=== PATIENT | male | born 1955 | race Caucasian/White ===

== ENCOUNTER → 2019-03-17 | Day surgery (SDC) | payer BC ==
[~2019-03-17] MED LIST: Bupivacaine 0.5% 50 ML MDV ONE; Dexamethasone 4 MG/ML SDV ONE; Glycopyrrolate 0.2 MG/ML 5 ML MDV ONE; LORazepam 2 MG/ML SDV IVPUSH ONE; Lactated Ringers 1,000 ML ONE; Morphine 4 MG/ML Syringe IVPUSH ONE; Neostigmine Methylsulfate 1 MG/ML 5 ML Syringe ONE; Ondansetron 4 MG/2 ML SDV ONE; Propofol 200 MG/20 ML SDV ONE; Rocuronium 50 MG/5 ML Vial ONE; Sodium Chloride 0.9% 10 ML Syringe FLUSH PRN; Succinylcholine 200 MG/10 ML MDV ONE; ceFAZolin 2 GM in Premix Bag 1 BAG IV ONE; fentaNYL 250 MCG/5 ML SDV ONE
--- NOTE | 2019-03-17 20:30 | EDM.PDOC ---
ED HPI GENERAL MEDICAL PROBLEM - General Chief Complaint: Laceration Stated Complaint: CUT ARM Time Seen by Provider: 03/17/19 20:00 Source of Information: Reports: Patient, Family History Limitations: Reports: No Limitations - History of Present Illness INITIAL COMMENTS - FREE TEXT/NARRATIVE: Alert pleasant 63-year-old gentleman presents with an acute right wrist/forearm injury. He is right-handed. Patient stated approximately an hour ago he slipped carrying a heavy object slipped/tripped landed on the bumper of the vehicle using his right wrist/forearm resulting in a laceration of the wrist ulnar flexor whcih wraps around to the extensor surface. Patient states he is able to move all his fingers. Patient denies any other injuries his or concerns. Patient's last meal was approximately 2 hours ago at 6:30 PM. Patient presents with his was at bedside and supportive. - Related Data Allergies Allergy/AdvReac Type Severity Reaction Status Date / Time No Known Allergies Allergy Verified 03/17/19 20:42 Home Meds: Home Meds NK [No Known Home Meds] 03/17/19 [History] ED ROS GENERAL - Review of Systems Review Of Systems: ROS reveals no pertinent complaints other than HPI. ED EXAM, SKIN/RASH Exam: See Below Exam Limited By: No Limitations (Acute stress response noted) General Appearance: Alert, WD/WN, Anxious, Moderate Distress Eye Exam: Bilateral Eye: EOMI, PERRL Ears: Normal External Exam, Normal Canal, Hearing Grossly Normal Nose: Normal Inspection, Normal Mucosa, No Blood Throat/Mouth: Normal Inspection, Normal Lips, Normal Teeth, Normal Gums, Normal Oropharynx, Normal Voice, No Airway Compromise Head: Atraumatic, Normocephalic Neck: Normal Inspection, Supple, Non-Tender, Full Range of Motion Respiratory/Chest: No Respiratory Distress, Lungs Clear, Normal Breath Sounds, No Accessory Muscle Use, Chest Non-Tender Cardiovascular: Normal Peripheral Pulses, Regular Rate, Rhythm GI/Abdominal: Normal Bowel Sounds, Soft Extremities: Normal Range of Motion, No Pedal Edema, Normal Capillary Refill, Arm Pain (extensive right wrist laceration deepest point at ulnar/flexor surface with exposure and less than 50% involvement of flexor carpi ulnaris. Patient has full strength and function of the right hand: Radial, Median and Ulnar Nerve Function intact. Laceration is contaminated and extends proximally and wrap around mid forearm to extensor surface. Minimal bleeding noted. ) Neurological: Alert, Oriented, CN II-XII Intact, Normal Cognition, Normal Gait, Normal Reflexes, No Motor/Sensory Deficits, Sensory/Motor Deficit (very decreased sensation in ulnar nerve involving fifth digit, fourth digit is spared. ) Psychiatric: Normal Affect, Normal Mood, Anxious Skin: Warm, Dry, Normal Color, Cool (slight pale diaphoretic due to acute injury. ) ED SKIN PROCEDURES - Laceration/Wound Repair Right Distal Wrist Appearance: Muscle, Irregular, Moderately Contaminated, Other (possible involvement ulnar flexor and extensor tendon, ulnar nerve involvement ) Distal NVT: Neuro & Vascular Intact (radial, median and ulnar nerve. Good Radial Pulse. Ulnar pulse difficult to palpate. ) Local Anesthesia - Lidocaine (Xylocaine): 1% with EPI Local Anesthetic Volume: Other (15 cc) Saline Irrigation (cc's): 500 (Gross decontamination completed with irrigation and wet dressing applied. ) Exploration/Debridement/Repair: In a Bloodless Field, Other (Extensor Carpi Ulnaris Partial injury and Flexor Carpi Ulnaris Partial injury with exposure of ulnar periostemum tear. ) Tetanus Status Addressed: Yes (UTD) Complication Description: wet dressing and job wrap applied. Definative Orthopedic Surgical Intervention planned for this evening. EKG INTERPRETATION EKG Date: 03/17/19 Time: 22:35 Rhythm: NSR Rate (Beats/Min): 67 [place]: LAD-Left [place] Deviation QRS: Normal ST-T: Normal QT: Normal Comparison: NA - No Prior EKG Course - Vital Signs Last Recorded V/S: Last Vital Signs Temp 35.6 C 03/17/19 21:01 Pulse 54 L 03/17/19 21:01 Resp 16 03/17/19 21:01 BP 121/80 03/17/19 21:01 Pulse Ox 99 03/17/19 21:01 - Orders/Labs/Meds Orders: Active Orders 24 hr Category Date Time Status EKG Documentation Completion [RC] ASDIRECTED Care 03/17/19 20:14 Active Peripheral IV Care [RC] . DIRECTED Care 03/17/19 20:14 Active Verify Patient Consent Obtain [RC] ASDIRECTED Care 03/17/19 21:40 Active Sodium Chloride 0.9% [Saline Flush] Med 03/17/19 20:13 Active 10 ml FLUSH ASDIRECTED PRN Peripheral IV Insertion Adult [OM.PC] Stat Oth 03/17/19 20:13 Ordered EKG 12 Lead [EK] Stat Ther 03/17/19 20:13 Ordered Medication Orders Sodium Chloride (Saline Flush) 10 ml FLUSH ASDIRECTED PRN PRN Reason: Keep Vein Open Last Admin: 03/17/19 20:50 Dose: 10 ml Labs: Laboratory Tests 03/17/19 03/17/19 Range/Units 20:27 20:27 WBC 9.7 (4.5-11.0) K/uL RBC 4.44 (4.30-5.90) M/uL Hgb 14.3 (12.0-15.0) g/dL Hct 42.9 (40.0-54.0) % MCV 97 (80-98) fL MCH 32 H (27-31) pg MCHC 33 (32-36) % Plt Count 264 (150-400) K/uL Neut % (Auto) 52 (36-66) % Lymph % (Auto) 35 (24-44) % [place] % (Auto) 8 H (2-6) % Eos % (Auto) 5 H (2-4) % Baso % (Auto) 1 (0-1) % Sodium 143 (140-148) mmol/L Potassium 4.0 (3.6-5.2) mmol/L Chloride 104 (100-108) mmol/L Carbon Dioxide 28 (21-32) mmol/L Anion Gap 10.6 (5.0-14.0) mmol/L BUN 21 H (7-18) mg/dL Creatinine 1.5 H (0.8-1.3) mg/dL Est Cr Clr Drug Dosing 58.54 mL/min Estimated GFR (MDRD) 47 L (>60) Glucose 149 H (74-106) mg/dL Calcium 9.2 (8.5-10.1) mg/dL Total Bilirubin 0.2 (0.2-1.0) mg/dL AST 33 (15-37) U/L ALT 43 (12-78) U/L Alkaline Phosphatase 81 (46-116) U/L Total Protein 7.4 (6.4-8.2) g/dL Albumin 4.0 (3.4-5.0) g/dL Globulin 3.4 (2.3-3.5) g/dL Albumin/Globulin Ratio 1.2 (1.2-2.2) Meds: Medications Generic Name Dose Route Start Last Admin Trade Name Freq PRN Reason Stop Dose Admin Sodium Chloride 10 ml 03/17/19 20:13 03/17/19 20:50 Saline Flush FLUSH 10 ml ASDIRECTED PRN Administration Keep Vein Open Discontinued Medications Generic Name Dose Route Start Last Admin Trade Name Freq PRN Reason Stop Dose Admin Cefazolin Sodium/Dextrose 2 gm 50 mls @ 100 mls/hr 03/17/19 20:13 03/17/19 20 :48 / Premix IV 03/17/19 20:42 100 mls/hr ONETIME ONE Administration Lorazepam 0.5 mg 03/17/19 20:13 03/17/19 20:49 Ativan IVPUSH 03/17/19 20:14 0.5 mg ONETIME ONE Administration Morphine Sulfate 4 mg 03/17/19 20:13 03/17/19 20:48 Morphine IVPUSH 03/17/19 20:14 4 mg ONETIME ONE Administration - Re-Assessments/Exams Free Text/Narrative Re-Assessment/Exam: IV access was initiated. Baseline Lab studies obtained. Local Lidocaine with Epi injection to control pain and bleeding locally. Ancef, Ativan and Morphine ordered. Patient's pain was much improved after lidocaine injection. I contacted call box wirer Orthopedic provider, Dr Guerrero, sent pictures. Dr Guerrero will evaluate patient in ED this evening. 03/17/19 20:20 Dr Guerrero at bedside to evaluate patient, plan surgical debridement, tendon repair, wound closure and splinting. 03/17/19 21:10 Departure - Departure Time of Disposition: 21:50 (transfer to OR per Ortho) Disposition: Still A Patient 30 Clinical Impression: Laceration of wrist with tendon involvement - Discharge Information - My Orders Last 24 Hours: My Active Orders 03/17/19 20:13 Sodium Chloride 0.9% [Saline Flush] 10 ml FLUSH ASDIRECTED PRN Peripheral IV Insertion Adult [OM.PC] Stat EKG 12 Lead [EK] Stat 03/17/19 20:14 EKG Documentation Completion [RC] ASDIRECTED Peripheral IV Care [RC] . DIRECTED - Assessment/Plan Last 24 Hours: My Active Orders 03/17/19 20:13 Sodium Chloride 0.9% [Saline Flush] 10 ml FLUSH ASDIRECTED PRN Peripheral IV Insertion Adult [OM.PC] Stat EKG 12 Lead [EK] Stat 03/17/19 20:14 EKG Documentation Completion [RC] ASDIRECTED Peripheral IV Care [RC] . DIRECTED
--- NOTE | 2019-03-17 21:53 | PCM.HP ---
H&P History of Present Illness - General Date of Service: 03/17/19 Source of Information: Patient History Limitations: Reports: No Limitations - History of Present Illness Initial Comments - Free Text/Narative: 63 year old right hand dominant male tripped and fell while carrying a heavy object landing onto the bumper of a car. Sustained a large irregular laceration to the volar ulnar aspect of the distal forearm. Laceration starts just at the wrist crease and extends proximally for several inches. Has decreased light touch to small finger. Has at least some intrinsic muscle function intact. Tetanus up to date. Wound partially irrigated in ED. Onset of Symptoms: Reports: Today, Sudden Severity: Moderate Improves with: Reports: Immobilization Worsens with: Reports: Movement Associated Symptoms: Reports: No Other Symptoms - Related Data Allergies/Adverse Reactions: Allergies Allergy/AdvReac Type Severity Reaction Status Date / Time No Known Allergies Allergy Verified 03/17/19 20:42 Home Medications: Home Meds NK [No Known Home Meds] 03/17/19 [History] Past Medical History Musculoskeletal History: Reports: Fracture Social & Family History - Tobacco Use Smoking Status *Q: Light Tobacco Smoker Years of Tobacco use: 20 Packs/Tins Daily: 0.1 - Caffeine Use Caffeine Use: Reports: Coffee - Recreational Drug Use Recreational Drug Use: No H&P Review of Systems - Review of Systems: Review Of Systems: ROS reveals no pertinent complaints other than HPI. Exam - Exam Exam: See Below - Vital Signs Vital Signs: Last Vital Signs Temp 35.6 C 03/17/19 21:01 Pulse 54 L 03/17/19 21:01 Resp 16 03/17/19 21:01 BP 121/80 03/17/19 21:01 Pulse Ox 99 03/17/19 21:01 Weight: 107.3 kg - Exam General: Alert, Oriented, 4 HEENT: PERRLA, Hearing Intact, Mucosa Moist & [place], Nares Patent, Normal Nasal Septum, Posterior Pharynx Clear, Conjunctiva Clear, EOMI, EACs Clear, TMs Clear Neck: Supple, Trachea Midline, 2 Lungs: Clear to Auscultation, Normal Respiratory Effort Cardiovascular: Regular Rate, Regular Rhythm GI/Abdominal Exam: Normal Bowel Sounds, Soft, Non-Tender, No Organomegaly, No Distention, No Abnormal Bruit, No Mass, Pelvis Stable (Male) Exam: Deferred Rectal (Males) Exam: Deferred Back Exam: Normal Inspection, Full Range of Motion, NT Extremities: Other (Large irregular laceration to volar ulnar aspect of forearm with visible laceration of ECU and FCU. Motion of fingers intact. Ulnar artery intact.) Peripheral Pulses: 2+: Radial (L), Radial (R) Skin: Warm, Dry, Intact Neurological: Cranial Nerves Intact, Reflexes Equal Bilateral Neuro Extensive - Mental Status: Alert, Oriented x3, Normal Mood/Affect, Normal Cognition Neuro Extensive - Motor, Sensory, Reflexes: CN II-XII Intact, Normal Gait, Normal Reflexes, Abnormal Sensation (decreased light touch and pinprick to small finger.), Abn 2 Pt Discrimination - Patient Data Lab Results Last 24 hrs: Laboratory Results - last 24 hr 03/17/19 03/17/19 Range/Units 20:27 20:27 WBC 9.7 (4.5-11.0) K/uL RBC 4.44 (4.30-5.90) M/uL Hgb 14.3 (12.0-15.0) g/dL Hct 42.9 (40.0-54.0) % MCV 97 (80-98) fL MCH 32 H (27-31) pg MCHC 33 (32-36) % Plt Count 264 (150-400) K/uL Neut % (Auto) 52 (36-66) % Lymph % (Auto) 35 (24-44) % [place] % (Auto) 8 H (2-6) % Eos % (Auto) 5 H (2-4) % Baso % (Auto) 1 (0-1) % Sodium 143 (140-148) mmol/L Potassium 4.0 (3.6-5.2) mmol/L Chloride 104 (100-108) mmol/L Carbon Dioxide 28 (21-32) mmol/L Anion Gap 10.6 (5.0-14.0) mmol/L BUN 21 H (7-18) mg/dL Creatinine 1.5 H (0.8-1.3) mg/dL Est Cr Clr Drug Dosing 58.54 mL/min Estimated GFR (MDRD) 47 L (>60) Glucose 149 H (74-106) mg/dL Calcium 9.2 (8.5-10.1) mg/dL Total Bilirubin 0.2 (0.2-1.0) mg/dL AST 33 (15-37) U/L ALT 43 (12-78) U/L Alkaline Phosphatase 81 (46-116) U/L Total Protein 7.4 (6.4-8.2) g/dL Albumin 4.0 (3.4-5.0) g/dL Globulin 3.4 (2.3-3.5) g/dL Albumin/Globulin Ratio 1.2 (1.2-2.2) Result Diagrams: 03/17/19 20:27 03/17/19 20:27 - Problem List (1) Laceration of wrist with tendon involvement SNOMED Code(s): 687525430 ICD Code: S61.519A - LACERATION WITHOUT FOREIGN BODY OF UNSP WRIST, INIT ENCNTR; S66.929A - LACERAT UNSP MUSC/FASC/TEND AT WRS/HND LV, UNSP HAND, INIT Status: Acute Current Visit: Yes Problem List Initiated/Reviewed/Updated: Yes Orders Last 24hrs: Active Orders 24 hr Category Date Time Status EKG Documentation Completion [RC] ASDIRECTED Care 03/17/19 20:14 Active Peripheral IV Care [RC] . DIRECTED Care 03/17/19 20:14 Active Verify Patient Consent Obtain [RC] ASDIRECTED Care 03/17/19 21:40 Ordered Sodium Chloride 0.9% [Saline Flush] Med 03/17/19 20:13 Active 10 ml FLUSH ASDIRECTED PRN Peripheral IV Insertion Adult [OM.PC] Stat Oth 03/17/19 20:13 Ordered EKG 12 Lead [EK] Stat Ther 03/17/19 20:13 Ordered Medication Orders Sodium Chloride (Saline Flush) 10 ml FLUSH ASDIRECTED PRN PRN Reason: Keep Vein Open Last Admin: 03/17/19 20:50 Dose: 10 ml Assessment/Plan Comment:: Large laceration of right forearm with involvement of tendons to the ulnar side of wrist and probable partial laceration of ulnar nerve. Wound irrigated in ED and antibiotics started. Plan I&D of wound, repair of tendons and exploration of ulnar nerve with repair as needed. If complete laceration of ulnar nerve is found may need secondary procedure.
--- NOTE | 2019-03-18 03:36 | OR ---
DATE OF PROCEDURE: 03/17/2019 PREOPERATIVE DIAGNOSES: Complex laceration right forearm involving tendons of flexor carpi ulnaris and extensor carpi ulnaris, possible partial ulnar nerve laceration. POSTOPERATIVE DIAGNOSES: 1. Complex laceration, right forearm. 2. Partial laceration, extensor carpi ulnaris. 3. Partial laceration, flexor carpi ulnaris. PROCEDURE PERFORMED: 1. Irrigation and debridement, complex laceration, right forearm with closure. 2. Repair flexor carpi ulnaris. 3. Repair extensor carpi ulnaris. 4. Exploration, ulnar nerve. ANESTHESIA: General. INDICATIONS: Mr. 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 He is right- hand dominant. He presents to the emergency room with a complex laceration over the volar ulnar aspect of the forearm. Initial evaluation reveals at least partial lacerations of the flexor and extensor carpi ulnaris. He also demonstrates decreased light touch sensation in the small finger with possible partial ulnar nerve laceration. He was taken to the operating room for irrigation and debridement of the laceration, repair of tendons as needed, and exploration of the ulnar nerve with repair as necessary. Risks, benefits, potential complications of the procedure were discussed including the possibility of ulnar nerve damage and incomplete recovery. DESCRIPTION OF PROCEDURE: After adequate anesthesia was obtained, the patient was placed supine with a tourniquet about the right upper arm. The right arm was prepped with Betadine, scrubbed and draped in a sterile fashion. A pulse lavage geological technician was then used to thoroughly irrigate the wound and soft tissue. Minor mechanical debridement was performed using the pulse geological technician and gauze. Wound was explored. This revealed approximately 50% laceration of the flexor carpi ulnaris and approximately 50% laceration of the extensor carpi ulnaris. There was some soft tissue stripping from the ulna. The ulnar nerve was identified entering Guyon's canal and this was followed proximally for the length of the laceration. This was found to be intact. It was also intact at the wrist crease and explored for short distance distal to linda laceration into Guyon's canal. The flexor carpi ulnaris was then repaired using 3-0 Prolene with a combination of Amol sutures and simple sutures. This provided excellent repair of the tendon. A 2-0 Vicryl was also used to repair a portion of the muscle, which was lacerated at the musculotendinous junction, repairing the fascia back to the tendon. Attention was then turned to the extensor side and this revealed approximately 50% laceration of the extensor carpi ulnaris. This was also repaired with 3-0 Prolene using a combination of [place] and locking sutures. Good approximation of the tendon ends was achieved. The arm was then kept in neutral, flexion, extension, and slight ulnar deviation. Wound was irrigated once again. This was then closed with 2-0 Vicryl in subcutaneous layer. The skin was then closed with surgical chester. Complex laceration measured 8 cm proximal to distal with a transverse extension measuring 5 cm. Wound edges were infiltrated with Marcaine and a sterile dressing was then applied with Xeroform and 4x4 gauze and wrapped with a sterile cast padding. An ulnar gutter splint was then applied with the hand in ulnar deviation. The patient tolerated the procedure well and no complications, taken from the operating room in stable condition. Jett Guerrero MD /[id number]
== END ==
LOC: JP.ED 19:36 → JP.SDS 21:41
PROVIDERS: ATTEND Specialist
DX: S56.521A Laceration of other extensor muscle, fascia and tendon at forearm level, right arm, initial encounter (principal); S56.221A Laceration of other flexor muscle, fascia and tendon at forearm level, right arm, initial encounter; S51.811A Laceration without foreign body of right forearm, initial encounter; F17.210 Nicotine dependence, cigarettes, uncomplicated; W17.89XA Other fall from one level to another, initial encounter
CPT/HCPCS: 25260; 25270; 36415; 80053; 85025; 93005; 96365; 96375; 99284; J0330; J0690; J1100; J2060; J2270; J2405; J2704; J3010; J3490; J7120; J2710